=== PATIENT | male | born 1940 | race American Indian/Alaskan Native ===

== ENCOUNTER 2017-08-26 13:50 | Emergency (ER) | payer OTHER ==
[~2017-08-26] VITALS: Ht 170.2 cm; Wt 65.8 kg
--- OUTSIDE RECORDS SUMMARY | ~2017-08-26 | XMS | Clinical Summary ---
Demographics + + + | Address | [address] [place] [address] ROAD | | | [place] [address] | + + + | Home Phone | | + + + | Preferred Language | Unknown | + + + | Marital Status | | + + + | Tenriism Affiliation | 1041 | + + + | Race | Unknown | + + + | Ethnic Group | Unknown | + + + Author + + + | Author | [facility] | | | and [place] | + + + | Organization | [facility] | | | and [place] | + + + | Address | Unknown | + + + | Phone | Unavailable | + + + Support + + + + + | Name | Relationship | Address | Phone | + + + + + | Anika Ruelas | ECON | [place] | | | | | [address] | | + + + + + | Bree Delgado | ECON | [address] | | | | | [place] | | | | | [address] | | + + + + + Care Team Providers + +------+ + | Care Fryer Line Helper Name | Role | Phone | + +------+ + | Pcp, Prov Inactive | PP | Unavailable | + +------+ + Allergies + + + + + + | Active Allergy | Reactions | Severity | Noted | Comments | | | | | Date | | + + + + + + | Honey | Hives | Medium | 02/07/20 | | | | | | 12 | | + + + + + + | [place] | Hives | Medium | 02/07/20 | | | | | | 12 | | + + + + + + Current Medications No known medications Active Problems + + + | Problem | Noted Date | + + + | S/P cervical spinal fusion | 03/02/2012 | + + + | Vitamin B 12 deficiency | | + + + | Vitamin D deficiency | | + + + | Spondylosis of cervical joint with myelopathy | | + + + | Cervical stenosis of spinal canal | | + + + | Herniated nucleus pulposus, C5-6 right | | + + + Social History + +-------+ +--------+ + | Tobacco Use | Types | Packs/Day | Years | Date | | | | | Used | | + +-------+ +--------+ + | Former Smoker | | 2 | 50 | Quit: 12/20/2011 | + +-------+ +--------+ + + +---+---+---+ | Smokeless Tobacco: | | | | | Never Used | | | | + +---+---+---+ + + +---------+ + | Alcohol Use | Drinks/We | oz/Week | Comments | | | ek | | | + + +---------+ + | No | | | | + + +---------+ + + + + | Sex Assigned at | Date Recorded | | | | + + + | Not on file | | + + + Last Filed Vital Signs + + + + | Vital Sign | Reading | Time Taken | + + + + | Blood Pressure | 124/67 | 09/05/20121450 PDT | + + + + | Pulse | 56 | 09/05/20121450 PDT | + + + + | Temperature | - | - | + + + + | Respiratory Rate | 18 | 09/05/20121450 PDT | + + + + | Oxygen Saturation | - | - | + + + + | Inhaled Oxygen | - | - | | Concentration | | | + + + + | Weight | 68.9 kg (152 lb) | 09/05/20121450 PDT | + + + + | Height | 170.2 cm (5' 7") | 09/05/20121450 PDT | + + + + | Body Mass Index | 23.81 | 09/05/20121450 PDT | + + + + Plan of Treatment + + + + + | Health Maintenance | Due Date | Last Done | Comments | + + + + + | Vaccine: | | | | | Dtap/Tdap/Td (1 - | 9 | | | | Tdap) | | | | + + + + + | Vaccine: | | | | | Pneumococcal 65+ | 5 | | | | Low/Medium Risk (1 | | | | | of 2 - PCV13) | | | | + + + + + | Vaccine: Influenza | | | | | (Season Ended) | 8 | | | + + + + + Results Not on filefrom Last 3 Months Insurance + +--------+ +--------+ +---------+ | Payer | Benefi | Subscriber | Type | Phone | Address | | | t Plan | ID | | | | | | / | | | | | | | Group | | | | | + +--------+ +--------+ +---------+ | [employer] | HEALTH | xxxxxxxxx | Indemn | [phone] | | | | COMP | | ity | [phone] | | | | INDEMN | | | | | | | ITY | | | | | + +--------+ +--------+ +---------+ | [employer] | IHS | xxxxxxxxx | Indemn | | | | SERVICE | YELLOW | | ity | | | | | HAWK | | | | | + +--------+ +--------+ +---------+ + +--------+ +--------+ + + | Guarantor Name | Accoun | Relation to | Date | Phone | Billing Address | | | t Type | Patient | of | | | | | | | | | | + +--------+ +--------+ + + | ZION DELGADO | Person | Self [birth year] | Work: | [address] | | | al/Fam | | 1940 | [phone] | [place] | | | [place] | | | [phone]: | [address] | | | | | | | | | | | | | [phone] | | | | | | | [phone] | | + +--------+ +--------+ + +
--- OUTSIDE RECORDS SUMMARY | ~2017-08-26 | XMS | Clinical Summary ---
Demographics + + + | Address | [address] [place] [address] ROAD | | | [place] [address] | + + + | Home Phone | | + + + | Preferred Language | Unknown | + + + | Marital Status | | + + + | Rastafarian Affiliation | 1041 | + + + | Race | Unknown | + + + | Ethnic Group | Unknown | + + + Author + + + | Author | [facility] | | | and [place] | + + + | Organization | [facility] | | | and [place] | + + + | Address | Unknown | + + + | Phone | Unavailable | + + + Support + + + + + | Name | Relationship | Address | Phone | + + + + + | Anika Ruelas | ECON | [place] | | | | | [address] | | + + + + + | Bree Delgado | ECON | [address] | | | | | [place] | | | | | [address] | | + + + + + Care Team Providers + +------+ + | Care Multi Operation Forming Machine Setter Name | Role | Phone | + [...] + + + + + + | [place] | Hives | Medium | 02/07/20 | [...] | HEALTH | xxxxxxxxx | Indemn | [phone] | | | | COMP | | ity | [phone] | | | | INDEMN | | | | | | | ITY | | | | | + +--------+ +--------+ +---------+ | [employer] | IHS | xxxxxxxxx | Indemn [...] | Self | [birth year] | Work: | [address] | | | al/Fam | | 1940 | [phone] | [place] | | | [place] | | | [phone] Home: | [address] | | | | | | | | | | | | | [phone] | | | | | | | [phone] | | + +--------+ +--------+ + +
[~2017-08-26 13:50] MED LIST: CLINDAMYCIN HC300 MG PO
== END 2017-08-26 14:04 | disposition home or self-care (01) ==
LOC: ED 13:50
DX: H57.8 Other specified disorders of eye and adnexa (principal); H57.12 Ocular pain, left eye

== ENCOUNTER 2020-01-27 12:54 | Emergency (ER) | payer BC, OTHER ==
[~2020-01-27] VITALS: Ht 170.2 cm; Wt 65.8 kg
[2020-01-27] MEDS ORDERED: DOXYCYCLINE HY100 MG PO (15:59)
--- NOTE | 2020-01-27 17:37 | EKG ---
[facility] [address] [facility] [place], [place] [address] Signed Sinus rhythm with occasional premature ventricular complexes and fusion complexes Otherwise normal ECG No previous ECGs available Confirmed by DANIAL CUELLAR DO ([id number]) on 01/27/2020 5:37:37 PM Electronically Signed By: DANIAL CUELLAR DO 01/27/20 1737 PATIENT NAME: ARLETH DELGADOONY Electrocardiogram DATE OF : 40 PHYSICIAN: DANIAL CUELLAR DO REPORT #: [id number] REPORT IS CONFIDENTIAL AND NOT TO BE RELEASED WITHOUT AUTHORIZATION
== END 2020-01-27 16:20 | disposition home or self-care (01) ==
LOC: ED 12:54
DX: J01.90 Acute sinusitis, unspecified (principal); F17.200 Nicotine dependence, unspecified, uncomplicated; Z91.018 Allergy to other foods
CPT/HCPCS: 70450; 71045; 80053; 81001; 83735; 84484; 85025; 93005; 93010; 99284-25

== ENCOUNTER 2021-01-29 11:18 | Emergency (ER) | payer BC, OTHER ==
[~2021-01-29] VITALS: Ht 170.2 cm; Wt 65.8 kg
[~2021-01-29 11:18] MED LIST changes: +DOXYCYCLINE HY100 MG PO
[2021-01-29] MEDS ORDERED: COLD & FLU REL180 ML PO (11:45)
--- NOTE | 2021-01-29 18:43 | EKG ---
[facility] [address] [place] [address] Signed Normal sinus rhythm Right bundle branch block Abnormal ECG When compared with ECG of 27-JAN-2020 13:07, fusion complexes are no longer present premature ventricular complexes are no longer present Right bundle branch block is now present Confirmed by DARRYL MCPHERSON MD ([id number]) on 01/29/2021 6:43:12 PM Electronically Signed By: DARRYL MCPHERSON MD 01/29/21 1843 PATIENT NAME: ARLETH DELGADO Electrocardiogram DATE OF : 40 PHYSICIAN: DARRYL MCPHERSON MD REPORT #: [id number] REPORT IS CONFIDENTIAL AND NOT TO BE RELEASED WITHOUT AUTHORIZATION
== END 2021-01-29 15:17 | disposition home or self-care (01) ==
LOC: ED 11:18
DX: U07.1 COVID-19 (principal); I45.10 Unspecified right bundle-branch block; F17.200 Nicotine dependence, unspecified, uncomplicated; Z91.018 Allergy to other foods; Z91.010 Allergy to peanuts
CPT/HCPCS: 71045; 80053; 83605; 85025; 93005; 93010; 99285-25; C9803; M0243; Q0244; U0003